=== PATIENT | female | born 1970 | race American Indian/Alaskan Native ===

== ENCOUNTER 2016-09-30 08:01 | Emergency (ER) | payer MEDICARE ==
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
[2016-09-30] MEDS ORDERED: TYLENOL PO ONE (08:53)
[2016-09-30] MEDS ORDERED: FLEXERIL PO ONE (08:53)
[2016-09-30] MEDS ORDERED: CATAPRES PO ONE (08:54)
[2016-09-30] MEDS ORDERED: HCTZ PO ONE (08:54)
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
[2016-09-30 10:14] VITALS: BP 150/95
--- NOTE | 2016-09-30 11:50 | XRay Report ---
LUMBOSACRAL SPINE, 3 VIEWS: History: Back pain Findings: The vertebral bodies, disk spaces and posterior elements are intact. No compression deformity or malalignment. The SI joints are symmetric and unremarkable. Impression: 1. No evidence for acute injury to the lumbar spine.
== END 2016-09-30 12:07 | disposition home or self-care (01) ==
LOC: ED 08:01
DX: S39.012A Strain of muscle, fascia and tendon of lower back, initial encounter (principal); I10 Essential (primary) hypertension; E03.9 Hypothyroidism, unspecified; F17.200 Nicotine dependence, unspecified, uncomplicated; V49.59XA Passenger injured in collision with other motor vehicles in traffic accident, initial encounter; Y93.9 Activity, unspecified; Y92.9 Unspecified place or not applicable; Y99.9 Unspecified external cause status
CPT/HCPCS: 72072; 72100; 99283